=== PATIENT | male | born 1960 | race Caucasian/White ===

== ENCOUNTER 2017-06-12 23:55 | Outpatient (CLI) | payer MEDICAID | END 2017-06-12 23:56 | disposition critical access hospital (66) | LOC: EMS 23:55 | PROVIDERS: ATTEND Surgery | DX: R50.9 Fever, unspecified (principal); R05 Cough; R42 Dizziness and giddiness | CPT/HCPCS: A0425; A0429 ==

== ENCOUNTER 2017-06-13 00:11 | Emergency (ER) | payer MEDICAID ==
--- NOTE | 2017-06-13 00:26 | ED Physician Documentation ---
PD HPI FEVER - Stated complaint Stated Complaint: FEVER - History obtained from History obtained from: Patient - History of Present Illness Timing - onset: How many weeks ago (1) Timing details: Gradual onset Pain level max: 0 Pain level now: 0 Associated symptoms: Chills, Sweats, Nasal congestion, Productive cough. No: Sinus pain, Sore throat, Chest pain, Dyspnea, Abdominal pain Recently seen: Not recently seen - Additional information Additional information: c/o 6 days of subjective fever (did not take temperature, although medics measured temp at 101.5 [employer]), cough, fatigue. he says he was asked to leave [facility]; initially he says this was because he was sick, but he then tells me he was unhappy with staff at the [facility] for not washing drinking glasses (and thus, he figured, was not taking adequate measures to prevent spread of infection). Review of Systems Constitutional: reports: Fever, Chills, Fatigue, Sweats Eyes: denies: Photophobia Ears: denies: Ear pain Throat: denies: Sore throat Cardiac: reports: Reviewed and negative Respiratory: reports: Cough. denies: Dyspnea GI: reports: Nausea (earlier tonight (not nauseas on presentation)), Vomiting ( x1 episode). denies: Abdominal Pain : denies: Dysuria, Frequency Musculoskeletal: denies: Neck pain Neurologic: denies: Confused, Altered mental status, Headache PD PAST MEDICAL HISTORY - Past Medical History Past Medical History: No - Past Surgical History Past Surgical History: No - Present Medications Home Medications: Ambulatory Orders Medication Instructions Recorded Confirmed Azithromycin [Zithromax] 250 mg PO DAILY #4 tablet 06/13/17 - Allergies Allergies/Adverse Reactions: Allergies Allergy/AdvReac Type Severity Reaction Status Date / Time No Known Drug Allergies Allergy Verified 06/13/17 17:05 - Social History Does the pt drink ETOH?: No PD ED PE NORMAL - Vitals Vital signs reviewed: Yes - General General: Alert and oriented X 3, No acute distress, Well developed/nourished - HEENT HEENT: Moist mucous membranes, Pharynx benign - Neck Neck: Supple, no meningeal sign - Cardiac Cardiac: RRR, No murmur, No gallop, No rub - Respiratory Respiratory: No respiratory distress, Other (mild rhochi localized to left mid/ lower lung field posteriorly) - Abdomen Abdomen: Normal bowel sounds, Soft, Non tender, Non distended - Extremities Extremities: No edema Results - Vitals Vitals: Vital Signs - 24 hr 06/13/17 06/13/17 06/13/17 00:12 01:52 04:11 Temperature 38.6 C H 37.5 C Heart Rate 89 80 90 Respiratory 20 18 18 Rate Blood Pressure 155/75 H 114/68 O2 Saturation 95 93 92 06/13/17 06/13/17 06/13/17 04:13 05:18 06:14 Temperature Heart Rate 88 80 Respiratory 16 Rate Blood Pressure 117/65 122/69 122/62 O2 Saturation 96 95 06/13/17 06/13/17 10:17 16:22 Temperature 36.7 C 37.1 C Heart Rate 78 74 Respiratory 17 15 Rate Blood Pressure 126/71 128/72 O2 Saturation 96 100 Oxygen O2 Source Room air - Labs Labs: Laboratory Tests 06/13/17 06/13/17 06/13/17 11:49 11:49 11:49 WBC 12.4 H RBC 3.75 L Hgb 11.7 L Hct 33.5 L MCV 89.1 MCH 31.3 H MCHC 35.1 RDW 12.7 Plt Count 156 MPV 7.6 Neut # 10.2 H Lymph # 1.1 L [place] # 0.9 Eos # 0.0 Baso # 0.1 Absolute Nucleated RBC 0.00 Nucleated RBC % 0.0 Sodium 134 L Potassium 3.6 Chloride 100 L Carbon Dioxide 25 Anion Gap 9.0 BUN 16 Creatinine 1.1 Estimated GFR (MDRD) 69 L Glucose 136 H Calcium 8.1 L Total Bilirubin 0.7 AST 27 ALT 21 Alkaline Phosphatase 43 Total Protein 6.6 L Albumin 3.0 L Globulin 3.6 Albumin/Globulin Ratio 0.8 L Lipase 15 L TSH 0.72 Urine Color Urine Clarity Urine pH Ur Specific [place] Urine Protein Urine Glucose (UA) Urine Ketones Urine Occult Blood Urine Nitrite Urine Bilirubin Urine Urobilinogen Ur Leukocyte Esterase Urine RBC Urine WBC Ur Squamous Epith Cells Urine Bacteria Urine Casts Ur Microscopic Review Urine Culture Comments Urine Opiates Screen Ur Oxycodone Screen Urine Methadone Screen Ur Propoxyphene Screen Ur Barbiturates Screen Ur Tricyclics Screen Ur Phencyclidine Scrn Ur Amphetamine Screen U Methamphetamines Scrn U Benzodiazepines Scrn Urine Cocaine Screen U Cannabinoids Screen Ethyl Alcohol < 5.0 03/11/18 13:45 WBC RBC Hgb Hct MCV MCH MCHC RDW Plt Count MPV Neut # Lymph # [place] # Eos # Baso # Absolute Nucleated RBC Nucleated RBC % Sodium Potassium Chloride Carbon Dioxide Anion Gap BUN Creatinine Estimated GFR (MDRD) Glucose Calcium Total Bilirubin AST ALT Alkaline Phosphatase Total Protein Albumin Globulin Albumin/Globulin Ratio Lipase TSH Urine Color YELLOW Urine Clarity CLEAR Urine pH 5.5 Ur Specific [place] 1.025 Urine Protein 30 H Urine Glucose (UA) NEGATIVE Urine Ketones NEGATIVE Urine Occult Blood TRACE-INTA Urine Nitrite NEGATIVE Urine Bilirubin NEGATIVE Urine Urobilinogen 0.2 (NORMAL) Ur Leukocyte Esterase NEGATIVE Urine RBC 0-5 Urine WBC 0-3 Ur Squamous Epith Cells FEW Squamous Urine Bacteria Moderate H Urine Casts 0-2 Granular Casts Ur Microscopic Review INDICATED Urine Culture Comments INDICATED Urine Opiates Screen NEGATIVE Ur Oxycodone Screen NEGATIVE Urine Methadone Screen NEGATIVE Ur Propoxyphene Screen NEGATIVE Ur Barbiturates Screen NEGATIVE Ur Tricyclics Screen NEGATIVE Ur Phencyclidine Scrn NEGATIVE Ur Amphetamine Screen NEGATIVE U Methamphetamines Scrn NEGATIVE U Benzodiazepines Scrn NEGATIVE Urine Cocaine Screen NEGATIVE U Cannabinoids Screen NEGATIVE Ethyl Alcohol - Rads (name of study) chest xray Radiology: Prelim report reviewed, See rad report PD MEDICAL DECISION MAKING - ED course Complexity details: reviewed results, re-evaluated patient, considered differential, d/w patient ED course: febrile but fever responded well to tylenol in ED. pneumonia on cxr, but vital signs are stable including pulse ox. he is in no distress, including no respiratory distress. given rocephin and zithromax and held in ED for SW consult in AM to assess options for where to stay. he does not have signs/ symptoms that would indicate hospital admission at this time Departure - Departure Disposition: 01 Home, Self Care Clinical Impression: Pneumonia Condition: Good Instructions: ED Pneumonia Adult Follow-Up: [facility] [Provider Group] [facility] [Provider Group] Prescriptions: Azithromycin [Zithromax] 250 mg PO DAILY #4 tablet Discharge Date/Time: 06/13/17 16:30
[2017-06-13] MEDS ORDERED: ACETAMINOPHEN 325 MG TABLET PO STA (00:57)
--- NOTE | 2017-06-13 01:48 | XRAY Report ---
EXAM: CHEST RADIOGRAPHY EXAM DATE: 06/13/2017 01:18 AM. CLINICAL HISTORY: Cough, dyspnea. COMPARISON: None. TECHNIQUE: 2 views. FINDINGS: Lungs/Pleura: Left perihilar airspace opacity which grossly clear right lung. No pneumothorax or effu cecelia. Mediastinum: Heart and mediastinal contours are unremarkable. Other: None. IMPRESSION: Left perihilar pneumonia. Posttreatment chest suggested to ensure clearance. [place] Referring Provider Line: [phone] SITE ID: [id number]
[2017-06-13] MEDS ORDERED: cefTRIAXone 1 GM in SODIUM CHLORIDE 0.9% MINIBAG 100 ML IV STA (03:20)
[2017-06-13] MEDS ORDERED: AZITHROMYCIN INJ 500 MG in SODIUM CHLORIDE 0.9% 250 ML IV STA (03:20)
--- NOTE | 2017-06-13 10:56 | ED Physician Documentation ---
History of Present Illness - Stated complaint Stated Complaint: FEVER - Chief complaint Chief Complaint: General - Additonal information Additional information: hx from pt and EMR 57 male seen last night by Dr Tracy for fever cough had a CXR that showed pna started on antibiotics VS normal plan was to dc however, pt is homeless and had no resources for getting his antibiotics so remained in ER to see SW after they arrived at 830 and finished morning inpt rounds pt has been seen by SW - see her note 1) regarding his meds a voucher has been completed 2) regarding housing [place] [facility] which is where pt has been staying since he moved from [place] to [facility] last fall - he has now been evicted from that system for stating that they weren't washing the dishes and that was causing people to get sick - pt states he has no family locally that he can call or stay with - so only option is the street 3) also it seems that pt is quite psychotic - he denies a hx of mental health or being diagnosed with schizophrenia but is is definitely psychotic today - seems to have some jehovah's witness and paranoid delusions, to listen to him it seems these may go back many years SW feels pt is gravely disabled by these sx and cannot care for himself but she also states that respite and mental health facilities will not accept a mental health pt if he has a contagious dz such as pneumonia I went to see the pt (he had been seen and flagged for dc so i had not evaluated him earlier) he is awake alert cooperative oriented x 3 but after talking to him for a bit his psychosis becomes apparent - he speaks of tenriism by fire, having his identity being stolen, a [employer] game of tic tac toe that nobody wins, being marked out with a giant red letter C etc VS normal RRR ronchi ranjith no ext edema in summary his pna could be txed outpt if he was able to care for himself but being homeless , psychotic and gravely disabled that is not a safe dc and he cannot be placed for mental health care because he has pna spoke to hospitalist who will confer with care management and SW to try and figure out best and safest plan for the pt ordered baseline labs care management and hospitalist and SW met and called me back to advise that this is not an admission worthy dx and so the plan is that the pt will need to board in the ER until he has recovered from his pna and then can get his mental healthy care so will req telepsych eval so we can at least try and help pt psychosis while he boards in the ED indefinitely PD PAST MEDICAL HISTORY - Past Medical History Past Medical History: No - Past Surgical History Past Surgical History: No - Present Medications Home Medications: Ambulatory Orders Medication Instructions Recorded Confirmed Azithromycin [Zithromax] 250 mg PO DAILY #4 tablet 06/13/17 - Allergies Allergies/Adverse Reactions: Allergies Allergy/AdvReac Type Severity Reaction Status Date / Time No Known Drug Allergies Allergy Verified 06/13/17 17:05 - Social History Does the pt smoke?: No Smoking Status: Never smoker Does the pt drink ETOH?: No Does the pt have substance abuse?: No - Immunizations Immunizations are current?: No Results - Vitals Vitals: Vital Signs - 24 hr 06/13/17 06/13/17 06/13/17 00:12 01:52 04:11 Temperature 38.6 C H 37.5 C Heart Rate 89 80 90 Respiratory 20 18 18 Rate Blood Pressure 155/75 H 114/68 O2 Saturation 95 93 92 06/13/17 06/13/17 06/13/17 04:13 05:18 06:14 Temperature Heart Rate 88 80 Respiratory 16 Rate Blood Pressure 117/65 122/69 122/62 O2 Saturation 96 95 06/13/17 06/13/17 10:17 16:22 Temperature 36.7 C 37.1 C Heart Rate 78 74 Respiratory 17 15 Rate Blood Pressure 126/71 128/72 O2 Saturation 96 100 Oxygen O2 Source Room air - Labs Labs: Laboratory Tests 06/13/17 06/13/17 06/13/17 11:49 11:49 11:49 WBC 12.4 H RBC 3.75 L Hgb 11.7 L Hct 33.5 L MCV 89.1 MCH 31.3 H MCHC 35.1 RDW 12.7 Plt Count 156 MPV 7.6 Neut # 10.2 H Lymph # 1.1 L [place] # 0.9 Eos # 0.0 Baso # 0.1 Absolute Nucleated RBC 0.00 Nucleated RBC % 0.0 Sodium 134 L Potassium 3.6 Chloride 100 L Carbon Dioxide 25 Anion Gap 9.0 BUN 16 Creatinine 1.1 Estimated GFR (MDRD) 69 L Glucose 136 H Calcium 8.1 L Total Bilirubin 0.7 AST 27 ALT 21 Alkaline Phosphatase 43 Total Protein 6.6 L Albumin 3.0 L Globulin 3.6 Albumin/Globulin Ratio 0.8 L Lipase 15 L TSH 0.72 Urine Color Urine Clarity Urine pH Ur Specific [place] Urine Protein Urine Glucose (UA) Urine Ketones Urine Occult Blood Urine Nitrite Urine Bilirubin Urine Urobilinogen Ur Leukocyte Esterase Urine RBC Urine WBC Ur Squamous Epith Cells Urine Bacteria Urine Casts Ur Microscopic Review Urine Culture Comments Urine Opiates Screen Ur Oxycodone Screen Urine Methadone Screen Ur Propoxyphene Screen Ur Barbiturates Screen Ur Tricyclics Screen Ur Phencyclidine Scrn Ur Amphetamine Screen U Methamphetamines Scrn U Benzodiazepines Scrn Urine Cocaine Screen U Cannabinoids Screen Ethyl Alcohol < 5.0 06/13/17 13:45 WBC RBC Hgb Hct MCV MCH MCHC RDW Plt Count MPV Neut # Lymph # [place] # Eos # Baso # Absolute Nucleated RBC Nucleated RBC % Sodium Potassium Chloride Carbon Dioxide Anion Gap BUN Creatinine Estimated GFR (MDRD) Glucose Calcium Total Bilirubin AST ALT Alkaline Phosphatase Total Protein Albumin Globulin Albumin/Globulin Ratio Lipase TSH Urine Color YELLOW Urine Clarity CLEAR Urine pH 5.5 Ur Specific [place] 1.025 Urine Protein 30 H Urine Glucose (UA) NEGATIVE Urine Ketones NEGATIVE Urine Occult Blood TRACE-INTA Urine Nitrite NEGATIVE Urine Bilirubin NEGATIVE Urine Urobilinogen 0.2 (NORMAL) Ur Leukocyte Esterase NEGATIVE Urine RBC 0-5 Urine WBC 0-3 Ur Squamous Epith Cells FEW Squamous Urine Bacteria Moderate H Urine Casts 0-2 Granular Casts Ur Microscopic Review INDICATED Urine Culture Comments INDICATED Urine Opiates Screen NEGATIVE Ur Oxycodone Screen NEGATIVE Urine Methadone Screen NEGATIVE Ur Propoxyphene Screen NEGATIVE Ur Barbiturates Screen NEGATIVE Ur Tricyclics Screen NEGATIVE Ur Phencyclidine Scrn NEGATIVE Ur Amphetamine Screen NEGATIVE U Methamphetamines Scrn NEGATIVE U Benzodiazepines Scrn NEGATIVE Urine Cocaine Screen NEGATIVE U Cannabinoids Screen NEGATIVE Ethyl Alcohol PD MEDICAL DECISION MAKING - ED course ED course: pt homeless and delusional with pna SW felt gravely disabled unable to go to in mental health or respite 2/2 pna / contagious unable to be admitted to [facility] as his pneumonia is not severe enough plan was to board in ED indef until pna improved so could have 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 per telepscyh the delusions are longstanding telepsych notes pt refuses any inpt mental health care and also to take any psych meds pt denied SI HI and is not hallucinating telepsych does not feel his is so disabled that he he is gravely disabled and does not think he needs invol mental health care and does not need /wont take meds so then req SW to be involved again to try and find [place] facility for [place] - she called [facility] and advises me they will not reconsider and pt had to be escorted off site by police and is banned for 30 days, asked SW to get pt a hotel voucher for a night but she advises that she spoke to house sup etc and that is also not possible, there are no other options available for homeless men [place] [facility] so will have to dc pt as there seem to simply be no other options despite extensive efforts pt did get pharmacy vouchers at least though he will need to wait until tomorrow to get to pharmacy when buses are running - he has received rocephin zmax both of which should last 24 hr then approx 5 min, after pt left lab called to advise me that a blood culture was drawn and run / put in incubator even though it was never ordered and lab staff wondered what i felt should be done about that - clearly cannot just ignore that result even if it was not ordered - asked lab if it was staph epi ( contaminant) or other - lab advises they cannot determine or release that info unless the culture is ordered so they can use sample presently in incubator for gram stain and further testing - so i ordered the culture that has already been started and asked for security to go see if pt is still on site and bring him back - as he is homeless there is no way to reach him now so hopefully we can find him thankfully security found pt per registration he has to check in again not continue prior ER visit so see my next note for continuation Departure - Departure Disposition: 01 Home, Self Care Clinical Impression: Pneumonia Qualifiers: Pneumonia type: due to unspecified organism Laterality: left Lung location: unspecified part of lung Qualified Code(s): J18.9 - Pneumonia, unspecified organism Condition: Good Instructions: ED Pneumonia Adult Follow-Up: [facility] [Provider Group] [facility] [Provider Group] Prescriptions: Azithromycin [Zithromax] 250 mg PO DAILY #4 tablet Discharge Date/Time: 06/13/17 16:30
[2017-06-13 11:58] LABS: BASOPHILS # (AUTO) 0.1 10^3/uL (0.0-0.1); BASOPHILS % (AUTO) 0.6 %; HGB - HEMOGLOBIN 11.7 g/dL (14.0-18.0); LYMPHOCYTES # (AUTO) 1.1 10^3/uL (1.5-3.5); LYMPHOCYTES % (AUTO) 9.2 %; MEAN CORPUSCULAR HEMOGLOBIN 31.3 pg (27.0-31.0); MEAN CORPUSCULAR HGB CONC 35.1 g/dL (32.0-36.0); MEAN CORPUSCULAR VOLUME 89.1 fL (80.0-94.0); MEAN PLATELET VOLUME 7.6 fL (7.4-11.4); MONOCYTES # (AUTO) 0.9 10^3/uL (0.0-1.0); MONOCYTES % (AUTO) 7.2 %; NEUTROPHILS # (AUTO) 10.2 10^3/uL (1.5-6.6); PLT - PLATELET COUNT 156 10^3/uL (130-450); RED BLOOD COUNT 3.75 10^6/uL (4.70-6.10); RED CELL DISTRIBUTION WIDTH 12.7 % (12.0-15.0); WHITE BLOOD COUNT 12.4 x10^3/uL (4.8-10.8)
--- NOTE | 2017-06-13 12:10 | TELEPSYCH PHYS NOTE ---
Telepsych Note - CHIEF COMPLAINT/HX OF PRESENT ILLNESS Lashayif Complaint and History of Present Illness: Reason for consult: psychosis: delusions HPI: This is a 57 yo male who denies any past psychiatric history. He initially presented to the ED overnight and he was worked up and started on antibiotics for pneumonia with a plan to manage outpatient. Patient is homeless and has limited supports in the area. While social work was exploring disposition options, patient's delusions became more prominent. He is convinced that he has had his identity stolen and there is some government conspiracy playing "tic tac toe" with his life. There is a question by some hospital staff whether patient is gravely disabled enough to warrant inpatient psychiatry but his current infection will be a barrier to immediate placement. On interview, patient confirms that he is under a lot of stress because the halfway he had been staying at for months has kicked him out. He accused them of making people sick by not keeping clean dishes. Patient has both paranoid and temple delusions ("we are in a spiritual war") but denies any hallucinations. He denies SI, HI, and any past harm to self or others. He admits that his beliefs ( delusions) have led to "false arrests" but they did not appear appear to be violent offenses. Mostly writing letters to the [employer] or [employer] were the things that got him in trouble in the past. Patient declines any mental health help and says they have tried to convince him to get help back in 2000. It's unclear whether patient ended up going inpatient at that time. He is pressured, especially when he starts talking about his delusional thought content, but he can be redirected back on topic. Mental Status Exam: Attitude and behavior: fixates on conspiracies about identity theft and "spiritual war" but cooperates with questions Speech: pressured, normal volume, at time irritable tone Affect and mood: "I just need a place to go... I'm not crazy." Association and thought processes: mostly goal directed but does go off on a few tangents during interview Thought content/Perception: +paranoid & temple delusions, no hallucinations, no SI or HI Sensorium and orientation: alert and oriented to situation Cognitive functioning: grossly unimpaired Insight and judgment: fair to poor - SI/HI/SELF HARM SI/HI/SELF HARM (CURRENT OR HISTORY OF):: Other SI/HI/Self Harm Text (Current or History of):: denies current or past thoughts of harm to self or others - VIOLENCE/LEGAL/COLLATERAL Violence - Legal - Collateral: denies - PSYCHIATRIC HX/TREATMENT HX Psychiatric: None, Other Psychiatric/Treatment Hx Other: patient may have had an inpatient or at least crisis stabilization encounter in 2000 but says he had never needed nor complied with any mental health interventions - DRUG/ALCOHOL HX Substance use/abuse/alcohol text: admits to past cannabis but denies any current use of any drugs or alcohol - MEDICAL HX Does the pt have a hx of MRSA?: No Respiratory: Pneumonia (started on antibiotics overnight) Is Patient ?: No - HOME MEDICATIONS Home Meds (as last confirmed): none - ALLERGIES Allergies (as last confirmed): Allergies Allergy/AdvReac Type Severity Reaction Status Date / Time No Known Drug Allergies Allergy Verified 06/13/17 00:15 - FAMILY PSYCH/SUICIDE/SOCIAL HX-MENTAL Family - Suicide - Social Hx and Mental Status Exam: Family History: unknown Social: homeless and now prohibited from returning to [facility] due to pt's accusations toward the facility's cleanliness; recently moved from Home, limited supports in area, only strength seems to be patient's ability to seek out help when he feels he needs it like overnight for respiratory symptoms - PATIENT PROBLEM LIST (1) Delusion Impression: This is a 57 yo male with what appears to be chronic delusions. He originally presented for medical reasons and is reportedly stable enough to receive outpatient treatment for his pneumonia. Patient denies any SI or HI or hallucinations. He admits to past legal difficulties (trespassing and the like) due to his delusions but does not appear to have any past violence or self harm. He declines any mental health help and does not meet dangerousness criteria that would have us compel him to receive this help. - TREATMENT/PHARMACOLOGICAL RECOMMENDATION Treatment - Pharmacological - Therapy Recommendations: 1. patient declines any psychotropic medication 2. patient would benefit from a higher level of psychiatric care but he declines and does not meet dangerousness criteria to be detained and compelled to receive treatment - TIME SPENT & PROVIDER LOCATION Telepsych consultation conducted via videoconferencing: Yes List names and roles of persons who participated in consult: Yenifer Chappell Telepsych Provider Location: [place] Time Telepsych consult began: 12:12 Time Telepsych consult completed: 13:18
[2017-06-13 12:12] LABS: ALBUMIN/GLOBULIN RATIO 0.8 (1.0-2.2); ALKALINE PHOSPHATASE 43 IU/L (42-121); ALT ALANINE AMINOTRANSFERASE 21 IU/L (10-60); AST ASPARTATE AMINOTRANSFERASE 27 IU/L (10-42); BILIRUBIN,TOTAL 0.7 mg/dL (0.2-1.0); BUN - BLOOD UREA NITROGEN 16 mg/dL (6-20); CALCIUM 8.1 mg/dL (8.5-10.3); CARBON DIOXIDE - CO2 25 mmol/L (21-32); CHLORIDE 100 mmol/L (101-111); CREATININE 1.1 mg/dL (0.6-1.2); GFR - MDRD 69 (>89); GLUCOSE 136 mg/dL (70-100); LIPASE 15 U/L (22-51); SODIUM 134 mmol/L (135-145); TOTAL PROTEIN 6.6 g/dL (6.7-8.2)
[2017-06-13 13:58] LABS: MUDS CUTOFF CONCENTRATIONS CUTOFF CONC BELOW:
[2017-06-13 14:01] LABS: BILIRUBIN,URINE NEGATIVE (NEGATIVE); GLUCOSE, URINE (UA) NEGATIVE (NEGATIVE); KETONES,URINE (UA) NEGATIVE (NEGATIVE); LEUKOCYTE ESTERASE, URINE NEGATIVE (NEGATIVE); NITRITE,URINE NEGATIVE (NEGATIVE); OCCULT BLOOD,URINE TRACE-INTA (NEGATIVE); PH,URINE 5.5 PH (5.0-7.5); PROTEIN,URINE 30 mg/dL (NEGATIVE); UROBILINOGEN,URINE 0.2 (NORMAL) E.U./dL (NORMAL)
[2017-06-13 14:12] LABS: BACTERIA,URINE Moderate /HPF (None Seen); CLARITY,URINE CLEAR (CLEAR); RBC,URINE 0-5 /HPF (0-5); SQUAMOUS EPITHELIAL CELL,UR FEW Squamous (<= Few)
[2017-06-13 14:13] LABS: AMPHETAMINE SCREEN,URINE NEGATIVE (NEGATIVE); BENZODIAZEPINES SCREEN, URINE NEGATIVE (NEGATIVE); COCAINE SCREEN URINE NEGATIVE (NEGATIVE); METHADONE SCREEN, URINE NEGATIVE (NEGATIVE); METHAMPHETAMINES SCREEN, URINE NEGATIVE (NEGATIVE); OPIATE SCREEN, URINE NEGATIVE (NEGATIVE); OXYCODONE SCREEN, URINE NEGATIVE (NEGATIVE); PROPOXYPHENE SCREEN, URINE NEGATIVE (NEGATIVE); TRICYCLIC ANTIDEPRESSANT,URINE NEGATIVE (NEGATIVE)
[2017-06-13 16:22] VITALS: BP 128/72
== END 2017-06-13 16:30 | disposition home or self-care (01) ==
LOC: ED 00:11
DX: J18.9 Pneumonia, unspecified organism (principal); N39.0 Urinary tract infection, site not specified; F22 Delusional disorders; Z59.0 Homelessness
CPT/HCPCS: 36415; 71046; 80053; 80306; 80320; 81001; 81003; 83690; 84443; 85025; 87040; 87086; 99284

== ENCOUNTER 2017-06-13 16:52 | Inpatient (IN) | payer MEDICAID ==
--- NOTE | 2017-06-13 17:16 | ED Physician Documentation ---
History of Present Illness - Stated complaint Stated Complaint: PNEUMONIA - Chief complaint Chief Complaint: General - Additonal information Additional information: pt seen last night for fever chills fatigue myalgias cough CXR shows left sided pna pt was given antibiotics by mini shifter pt had been banned from [facility] and was also noted to be delusional in the ER was turned over my mini shifter to me pending SW assisting with housing resources etc SW saw pt and felt he was gravely disabled unable to go to inpt mental health or respite 2/2 pna and being contagious unable to be admitted to [facility] as his pneumonia is not severe enough plan was to board in ED indef until pna improved so could have [facility] place for inpt mental health requested telepsych for 2 reasons 1) to confirm that pt is actually gravely disabled and 2) for med rec while pt is boarding see telepsych consult noted in summary, telespsych feels pt has pure delusional disorder or else paranoid personality disorder per telepscyh the delusions are longstanding telepsych notes pt refuses any inpt mental health care and also refuses to take any psych meds pt denied SI HI and is not hallucinating telepsych does not feel he is so disabled that he he is gravely disabled and does not think he needs invol mental health care and does not need /wont take meds so then req SW to be involved again to try and find nursing home for pt - she called [facility] and advises me they will not reconsider and pt had to be escorted off site by police and is banned for 30 days, so asked SW to get pt a hotel voucher for a night but she advises that she spoke to house sup etc and that is also not possible, and that there are no other options available for homeless men [email or web address] so will have to dc pt to return to his homeless state as there seem to simply be no other options despite extensive efforts did provide pharmacy vouchers then approx 5 min, after pt left lab called to advise me that a blood culture was drawn and run even though had never been ordered - asked lab if it was staph epi (contaminant) or other - lab advises they cannot determine or release that info yet - so i ordered the culture so that lab will process for gram satin ID sensitivity etc - and asked for security to go see if pt is still on site and bring him back - as he is homeless there is no way to reach [facility] security found pt sitting on a bench in the sun outside the hospital per registration he has to check in again not continue prior ER visit pt states he feels about the same as when he left 10-15 min ago, maybe a little better than last night Review of Systems Constitutional: reports: Fever, Fatigue Eyes: reports: Loss of vision Respiratory: reports: Cough GI: denies: Vomiting, Diarrhea Neurologic: reports: Generalized weakness Immunocompromised: denies: Immunocompromised PD PAST MEDICAL HISTORY - Past Medical History Respiratory: Pneumonia (started on antibiotics overnight) Psych: None, Other - Past Surgical History Past Surgical History: No - Present Medications Home Medications: Ambulatory Orders Medication Instructions Recorded Confirmed Azithromycin [Zithromax] 250 mg PO DAILY #4 tablet 06/13/17 - Allergies Allergies/Adverse Reactions: Allergies Allergy/AdvReac Type Severity Reaction Status Date / Time No Known Drug Allergies Allergy Verified 06/13/17 17:05 - Social History Does the pt smoke?: No Smoking Status: Never smoker Does the pt drink ETOH?: No Does the pt have substance abuse?: No - Immunizations Immunizations are current?: No PD ED PE NORMAL - Vitals Vital signs reviewed: Yes - General General: Alert and oriented X 3 - Neck Neck: Supple, no meningeal sign - Cardiac Cardiac: RRR - Respiratory Respiratory: No respiratory distress, Clear bilaterally - Derm Derm: Normal color - Extremities Extremities: No deformity Results - Vitals Vitals: Vital Signs - 24 hr 06/13/17 17:02 Temperature 97.3 C H Heart Rate 71 Respiratory 14 Rate Blood Pressure 136/74 H O2 Saturation 93 Oxygen O2 Source Room air - Labs Labs: Laboratory Tests 06/13/17 06/13/17 06/13/17 17:35 17:35 17:35 WBC 11.9 H RBC 3.75 L Hgb 11.3 L Hct 33.6 L MCV 89.6 MCH 30.2 MCHC 33.7 RDW 12.6 Plt Count 184 MPV 7.8 Neut # 9.4 H Lymph # 1.6 [place] # 0.8 Eos # 0.0 Baso # 0.1 Absolute Nucleated RBC 0.00 Nucleated RBC % 0.0 Sodium 134 L Potassium 3.2 L Chloride 99 L Carbon Dioxide 26 Anion Gap 9.0 BUN 17 Creatinine 1.1 Estimated GFR (MDRD) 69 L Glucose 104 H Lactic Acid 0.9 Calcium 8.0 L PD MEDICAL DECISION MAKING - ED course ED course: known pna now + blood cx lab states it will be several hr minimum for a prelim ID, just know gram + right now but that could be strep penumo - will admit called hospitalist service and pt was promptly admitted Departure - Departure Disposition: [facility] DC/Xfer Clinical Impression: Positive blood culture Pneumonia Qualifiers: Pneumonia type: due to unspecified organism Laterality: left Lung location: unspecified part of lung Qualified Code(s): J18.9 - Pneumonia, unspecified organism Condition: Good Discharge Date/Time: 06/13/17 18:29
[2017-06-13] MEDS ORDERED: SODIUM CHLORIDE 0.9% 1,000 ML IV ONE (17:17)
[2017-06-13 17:45] LABS: BASOPHILS # (AUTO) 0.1 10^3/uL (0.0-0.1); BASOPHILS % (AUTO) 0.4 %; EOSINOPHILS % (AUTO) 0.1 %; HGB - HEMOGLOBIN 11.3 g/dL (14.0-18.0); LYMPHOCYTES # (AUTO) 1.6 10^3/uL (1.5-3.5); LYMPHOCYTES % (AUTO) 13.3 %; MEAN CORPUSCULAR HEMOGLOBIN 30.2 pg (27.0-31.0); MEAN CORPUSCULAR HGB CONC 33.7 g/dL (32.0-36.0); MEAN CORPUSCULAR VOLUME 89.6 fL (80.0-94.0); MEAN PLATELET VOLUME 7.8 fL (7.4-11.4); MONOCYTES # (AUTO) 0.8 10^3/uL (0.0-1.0); MONOCYTES % (AUTO) 6.9 %; NEUTROPHILS # (AUTO) 9.4 10^3/uL (1.5-6.6); NEUTROPHILS % (AUTO) 79.3 %; PLT - PLATELET COUNT 184 10^3/uL (130-450); RED BLOOD COUNT 3.75 10^6/uL (4.70-6.10); RED CELL DISTRIBUTION WIDTH 12.6 % (12.0-15.0); WHITE BLOOD COUNT 11.9 x10^3/uL (4.8-10.8)
[2017-06-13] MEDS ORDERED: SODIUM CHLORIDE FLUSH 0.9% 10 ML SYRINGE IVP PRN (17:53)
[2017-06-13] MEDS ORDERED: ONDANSETRON 4 MG/2 ML VIAL IVP PRN (17:53)
[2017-06-13 17:58] LABS: CREATININE 1.1 mg/dL (0.6-1.2)
[2017-06-13] MEDS ORDERED: AZITHROMYCIN INJ 500 MG in SODIUM CHLORIDE 0.9% 250 ML IV SCH (18:00)
--- NOTE | 2017-06-13 18:07 | HISTORY & PHYSICAL EXAMINATION ---
Chief Complaint - Chief Complaint Chief Complaint: fever, chill, cough History of Present Illness - Admitted From Admitted From:: ER - History Obtained From History obtained from: Pt - History of Present Illness HPI Comment/Other: Mr. Bravo is a 57-year-old male with a past medical history significant for psychiatric history, pneumonia, who present ER complaint of fever, chill, cough , and headache. Pt report his symptoms, fever, chill, headache, cough started one week ago. pt is homeless, and he state he is under a lot of stress because of the residential issue.He had been staying for months in the residential but recently he has been kicked out. Until last night, he though he just can not hold more, then he came to this ER. Pt was discharged with prescribed antibiotics. Pt state his headache is resolved now. No more fever, chill, and cough is subsided since last night. Pt was recalled because his blood culture showed positive negative bacilli. Pt was also evaluated by telepsych because in ER pt's delusions became more prominent. CXR in ER reveals pt had left perihilar pneumonia. In lab test on ER, pt has a slight elevated WBC, potassium 3.2, UDS reveals negative. Pt denies chest pain, shortness of breath, headache, abdominal pain, nausea, vomiting, diarrhea, vision changing. History - Past Medical History Respiratory: reports: Pneumonia (started on antibiotics overnight) Psych: reports: None, Other MRSA Hx?: No - Family & Social History Family History Comment/Other: pt is homeless, but pt state he is under a lot of stress because the residential he had been staying for months has kicked him out. Social History Notes: pt denies smoking cigarette, alcohol and drug abuse - Substance History Use: Uses substance without health or social issues: NONE Abuse: Recurrent use of substance despite neg consequences: NONE - POLST POLST Status: DNR Meds/Allgy - Home Medications Home Medications: Ambulatory Orders Medication Instructions Recorded Confirmed Azithromycin [Zithromax] 250 mg PO DAILY #4 tablet 06/13/17 - Allergies Allergies/Adverse Reactions: Allergies Allergy/AdvReac Type Severity Reaction Status Date / Time No Known Drug Allergies Allergy Verified 06/13/17 17:05 Review of Systems - Constitutional Constitutional: reports: Fatigue, Fever, Chills, Weakness. denies: Malaise, Poor appetite, Diaphoresis, Night sweats - Eyes Eyes: denies: Pain, Irritation, Amaurosis, Blurred vision, Spots in vision, Field loss, Vision loss, Dipolpia - Ears, Nose & Throat Ears, Nose & Throat: denies: Ear pain, Tinnitus, Vertigo, Nasal pain, Nasal discharge, Nosebleeds, Postnasal drainage, Dentures, Sore throat, Bleeding gums - Cardiovascular Cariovascular: denies: Irregular heart rate, Palpitations, Chest pain, Edema, Lightheadedness, Syncope, Exertional dyspnea, Decr. exercise tolerance - Respiratory Respiratory: reports: Cough. denies: Sputum production, Wheezing, Snoring, Hemoptysis, Orthopnea, SOB at rest, SOB with exertion, Apnea, Stridor - Gastrointestinal Gastrointestinal: denies: Abdominal pain, Abdominal distention, Constipation, Diarrhea, Change in bowel habits, Rectal bleeding, Black stools, Bloody stools, Nausea, Vomiting, Manny blood emesis, Coffee grounds emesis, Reflux/heartburn - Genitourinary Genitourinary: denies: Dysuria, Frequency, Urgency, Hematuria, Incontinence, Flank pain, Nocturia - Musculoskeletal Musculoskeletal: denies: Muscle pain, Back pain, Muscle aches, Stiffness, Limited range of motion, Muscle weakness, Gout, Joint pain, Joint swelling - Integumentary Integumentary: denies: Rash, Pruritis, Lesions, Dryness, Lumps, Acne, Pigment changes - Neurological Neurological: denies: General weakness, Focal weakness, Headache, Dizziness, Numbness, Memory problems, Pre-existing deficit, Abnormal gait, Seizures, Incoordination, Slurred speech - Psychiatric Psychiatric: reports: Delusions. denies: Depression, Anxiety, Suicidal, Hallucinations, Homicidal - Endocrine Endocrine: denies: Polyuria, Polydypsia, Polyphagia, Intolerance to cold - Hematologic/Lymphatic Hematologic/Lymphatic: denies: Anemia, Bruising, Petechiae, Blood clots, Lymphadenopathy, Bleeding tendencies Exam - Vital Signs Reviewed Vital Signs: Yes Vital Signs: Vital Signs x48h Temp Pulse Resp BP Pulse Ox 06/13/17 17:02 97.3 C H 71 14 136/74 H 93 - Physical Exam General Appearance: positive: No acute distress, Alert. negative: Lethargic Eyes Bilateral: positive: Normal inspection, PERRL, No lid inflammation, Conjunctivae nml ENT: positive: ENT inspection nml, Pharynx nml, No signs of dehydration. negative: Purulent nasal drainage, Pharyngeal erythema, Oral lesions Neck: positive: Nml inspection, Thyroid nml, No JVD, Trachea midline. negative : Thyromegaly, Lymphadenopathy (R), Lymphadenopathy (L), Stiff neck, Carotid bruit, Swelling/bruising, Tracheal deviation Respiratory: positive: Chest non-tender, No respiratory distress, Breath sounds nml. negative: Wheezes, Rales, Rhonchi Cardiovascular: positive: Regular rate & rhythm, No murmur, No gallop. negative : Irregularly irregular, Extrasystoles, Tachycardia, Bradycardia, JVD present, Systolic murmur, Diastolic murmur Peripheral Pulses: positive: 2+ Abdomen: positive: Non-tender, No organomegaly, Nml bowel sounds, No distention. negative: Tenderness, Guarding, Rebound Back: positive: Nml inspection. negative: CVA tenderness (R), CVA tenderness (L ) Skin: positive: Color nml, No rash, Warm, Dry. negative: Cyanosis, Diaphoresis , Pallor Extremities: positive: Non-tender, Full ROM, Nml appearance. negative: Calf tenderness, Joint swelling, Berta's sign/cords Neurologic/Psychiatric: positive: Oriented x3, Sensation nml, Mood/affect nml. negative: Sensory loss, Facial droop, Slurred/abnml speech, Depressed mood/ affect Conclusion/Plan - Problem List (1) Positive blood culture Conclusion/Plan: positive negative bacilli, fever, chill, cough antibiotics Zosyn, follow up sensitive study repeat blood culture IVF vital monitor (2) Pneumonia Conclusion/Plan: CXR reveals left pneumonia, with fever, chill, cough antibiotics Azithyomycin, and Zosyn repeat blood culture IVF vital monitor Qualifiers: Pneumonia type: due to unspecified organism Laterality: left Lung location: unspecified part of lung Qualified Code(s): J18.9 - Pneumonia, unspecified organism (3) Delusion Conclusion/Plan: pt present delusion in ER but not present when I assessed pt. It seems stable now pt did not have medication for mental issue. telepsych already consult with pt, follow up (4) Homeless Conclusion/Plan: pt is homeless. consult with social work, d/c plan (5) DVT prophylaxis Conclusion/Plan: SCD and lovenox (6) Do not intubate, cardiopulmonary resuscitation (CPR)-only code status Conclusion/Plan: pt clearly request DNR - Lab Results Fish Bones: 06/13/17 17:35 06/13/17 17:35 Core Measures - Anticipated LOS I expect patient to be DC'd or transferred within 96 hours.: Yes - DVT/VTE - Prophylaxis VTE/DVT Device ordered at admit?: Yes VTE/DVT Prophylaxis med ordered at admit?: Yes
[2017-06-13] MEDS ORDERED: POTASSIUM CHLORIDE 20 MEQ TABLET PO SCH (18:20)
[2017-06-13] MEDS: PIPERACILLIN/TAZOBACTAM 3.375 GM in SODIUM CHLORIDE 0.9% MINIBAG 100 ML IV SCH (19:13)
[2017-06-13] MEDS: SODIUM CHLORIDE 0.9% 1,000 ML IV SCH (19:20)
[2017-06-14] MEDS: PIPERACILLIN/TAZOBACTAM 3.375 GM in SODIUM CHLORIDE 0.9% MINIBAG 100 ML IV SCH ×4 (00:18→19:10)
[2017-06-14] MEDS ORDERED: BENZOCAINE/MENTHOL LOZENGE MM PRN (00:24)
[2017-06-14] MEDS: SODIUM CHLORIDE 0.9% 1,000 ML IV SCH ×2 (05:02→15:47)
[2017-06-14] MEDS: SODIUM CHLORIDE FLUSH 0.9% 10 ML SYRINGE IVP SCH ×3 (05:05→15:49)
[2017-06-14 07:58] LABS: BASOPHILS # (AUTO) 0.1 10^3/uL (0.0-0.1); BASOPHILS % (AUTO) 0.9 %; EOSINOPHILS # (AUTO) 0.1 10^3/uL (0.0-0.7); EOSINOPHILS % (AUTO) 0.8 %; HGB - HEMOGLOBIN 11.1 g/dL (14.0-18.0); LYMPHOCYTES # (AUTO) 1.5 10^3/uL (1.5-3.5); MEAN CORPUSCULAR HEMOGLOBIN 31.8 pg (27.0-31.0); MEAN CORPUSCULAR VOLUME 90.9 fL (80.0-94.0); MEAN PLATELET VOLUME 7.7 fL (7.4-11.4); MONOCYTES # (AUTO) 0.8 10^3/uL (0.0-1.0); MONOCYTES % (AUTO) 8.7 %; NEUTROPHILS # (AUTO) 6.3 10^3/uL (1.5-6.6); NEUTROPHILS % (AUTO) 72.6 %; PLT - PLATELET COUNT 168 10^3/uL (130-450); WHITE BLOOD COUNT 8.7 x10^3/uL (4.8-10.8)
[2017-06-14] MEDS ORDERED: VANCOMYCIN PER PHARMACY 1.5 GM in SODIUM CHLORIDE 0.9% 250 ML IV SCH (08:00)
[2017-06-14 08:07] LABS: ALBUMIN 2.7 g/dL (3.2-5.5); ALBUMIN/GLOBULIN RATIO 0.8 (1.0-2.2); BILIRUBIN,TOTAL 0.4 mg/dL (0.2-1.0); CREATININE 1.1 mg/dL (0.6-1.2); MAGNESIUM 2.2 mg/dL (1.7-2.8); TOTAL PROTEIN 6.1 g/dL (6.7-8.2)
[2017-06-14] MEDS: POLYETHYLENE GLYCOL 3350 17 GM PACKET PO SCH (08:51)
[2017-06-14] MEDS: ENOXAPARIN 40 MG/0.4 ML SYRINGE SUBQ SCH (08:51)
[2017-06-14] MEDS: FAMOTIDINE 20 MG TABLET PO SCH (08:51)
[2017-06-14] MEDS ORDERED: AZITHROMYCIN 250 MG TABLET PO SCH (11:00)
--- NOTE | 2017-06-14 12:44 | PROVIDER PROGRESS NOTE ---
Subjective - Prog Note Date Prog Note Date: 06/14/17 - Subjective Pt reports feeling: Improved Subjective: pt state he feel better. No fever, chill, cough, chest pain, shortness of breath. Current Medications - Current Medications Current Medications: Active Medications Acetaminophen (Tylenol) 650 mg PO Q4HR PRN PRN Reason: Pain 1 to 4 Azithromycin (Zithromax) 500 mg PO DAILY [facility] Azithromycin (Zithromax) 250 mg PO ONCE ONE Stop: 06/14/17 13:01 Enoxaparin Sodium (Lovenox) 40 mg SUBQ DAILY [facility] Last Admin: 06/14/17 08:51 Dose: Not Given Famotidine (Pepcid) 20 mg PO DAILY [facility] Last Admin: 06/14/17 08:51 Dose: Not Given Sodium Chloride (Normal Saline 0.9%) 1,000 mls @ 100 mls/hr IV .Q10H [facility] Last Infusion: 06/14/17 06:57 Dose: 100 mls/hr Piperacillin Sod/Tazobactam (Sod 3.375 gm/ Sodium Chloride) 100 mls @ 200 mls/ hr IV Q6H [facility] Last Admin: 06/14/17 12:13 Dose: 200 mls/hr Ondansetron HCl (Zofran Inj) 4 mg IVP Q6HR PRN PRN Reason: Nausea / Vomiting Polyethylene Glycol (Miralax) 17 gm PO DAILY [facility] Last Admin: 06/14/17 08:51 Dose: Not Given Sodium Chloride (Normal Saline Flush 0.9%) 10 ml IVP PRN PRN PRN Reason: NEEDED PER PROVIDER ORDERS Sodium Chloride (Normal Saline Flush 0.9%) 10 ml IVP 0100,0900,1700 [facility] Last Admin: 06/14/17 05:05 Dose: Not Given Throat Lozenges (Cepacol) 1 lozenge MM Q2HR PRN PRN Reason: Throat pain No Known Home Medications [No Known Home Medications] 06/14/17 Objective - Vital Signs/Intake & Output Reviewed Vital Signs: Yes Vital Signs: Vital Signs x48h Temp Pulse Resp BP Pulse Ox 06/14/17 08:00 36.6 C 62 16 120/68 93 Intake & Output: Intake & Output 03/09/18 03/10/18 03/11/18 03/12/18 22:59 22:59 23:59 23:59 Intake Total 701.667 Balance 701.667 - Objective General Appearance: positive: No acute distress, Alert. negative: Lethargic Eyes Bilateral: positive: Normal inspection, PERRL, No lid inflammation, Conjunctivae nml ENT: positive: ENT inspection nml, Pharynx nml, No signs of dehydration. negative: Purulent nasal drainage, Pharyngeal erythema, Oral lesions Neck: positive: Nml inspection, Thyroid nml, No JVD, Trachea midline. negative : Thyromegaly, Lymphadenopathy (R), Lymphadenopathy (L), Stiff neck, Carotid bruit, Swelling/bruising, Tracheal deviation Respiratory: positive: Chest non-tender, No respiratory distress, Breath sounds nml. negative: Wheezes, Rales, Rhonchi Cardiovascular: positive: Regular rate & rhythm, No murmur, No gallop. negative : Irregularly irregular, Extrasystoles, Tachycardia, Bradycardia, Systolic murmur, Diastolic murmur Peripheral Pulses: 2+ Radial (R), 2+ Radial (L), 2+ Dorsalis pedis (R), 2+ Dorsalis pedis (L) Abdomen: positive: Non-tender, No organomegaly, Nml bowel sounds, No distention. negative: Tenderness, Guarding, Rebound Back: positive: Nml inspection. negative: CVA tenderness (R), CVA tenderness (L ) Skin: positive: Color nml, No rash, Warm, Dry. negative: Cyanosis, Diaphoresis , Pallor Extremities: positive: Non-tender, Full ROM, Nml appearance. negative: Calf tenderness, Joint swelling, Berta's sign/cords Neurologic/Psychiatric: positive: Motor nml, Sensation nml, Mood/affect nml. negative: Weakness, Sensory loss, Facial droop, Slurred/abnml speech - Lab Results Fish Bones: 06/14/17 07:50 06/14/17 07:50 Other Labs: Lab Results x24hrs 06/14/17 06/14/17 Range/Units 07:50 07:50 WBC 8.7 (4.8-10.8) x10^3/uL RBC 3.50 L (4.70-6.10) 10^6/uL Hgb 11.1 L (14.0-18.0) g/dL Hct 31.8 L (42.0-52.0) % MCV 90.9 (80.0-94.0) fL MCH 31.8 H (27.0-31.0) pg MCHC 35.0 (32.0-36.0) g/dL RDW 13.0 (12.0-15.0) % Plt Count 168 (130-450) 10^3/uL MPV 7.7 (7.4-11.4) fL Neut # 6.3 (1.5-6.6) 10^3/uL Lymph # 1.5 (1.5-3.5) 10^3/uL [place] # 0.8 (0.0-1.0) 10^3/uL Eos # 0.1 (0.0-0.7) 10^3/uL Baso # 0.1 (0.0-0.1) 10^3/uL Absolute Nucleated RBC 0.00 x10^3/uL Nucleated RBC % 0.0 /100WBC Sodium 137 (135-145) mmol/L Potassium 3.8 (3.5-5.0) mmol/L Chloride 105 (101-111) mmol/L Carbon Dioxide 24 (21-32) mmol/L Anion Gap 8.0 (6-13) BUN 14 (6-20) mg/dL Creatinine 1.1 (0.6-1.2) mg/dL Estimated GFR (MDRD) 69 L (>89) Glucose 106 H (70-100) mg/dL Calcium 8.0 L (8.5-10.3) mg/dL Magnesium 2.2 (1.7-2.8) mg/dL Total Bilirubin 0.4 (0.2-1.0) mg/dL AST 23 (10-42) IU/L ALT 20 (10-60) IU/L Alkaline Phosphatase 36 L (42-121) IU/L Total Protein 6.1 L (6.7-8.2) g/dL Albumin 2.7 L (3.2-5.5) g/dL Globulin 3.4 (2.1-4.2) g/dL Albumin/Globulin Ratio 0.8 L (1.0-2.2) Assessment/Plan - Problem List (1) Positive blood culture Impression: - Problem List (1) Positive blood culture Conclusion/Plan: the second blood culture reveals positive strep pneumoniae continue Zosyn IVF positive negative bacilli, fever, chill, cough antibiotics Zosyn, follow up sensitive study repeat blood culture IVF vital monitor (2) Pneumonia Conclusion/Plan: continue Azith and Zosyn CXR reveals left pneumonia, with fever, chill, cough antibiotics Azithyomycin, and Zosyn repeat blood culture IVF vital monitor (3) Delusion Conclusion/Plan: pt is stable, closely monitor pt present delusion in ER but not present when I assessed pt. It seems stable now pt did not have medication for mental issue. telepsych already consult with pt, follow up (4) Homeless Conclusion/Plan: pt is homeless. consult with social work, d/c plan (2) Pneumonia Qualifiers: Pneumonia type: due to unspecified organism Laterality: left Lung location: unspecified part of lung Qualified Code(s): J18.9 - Pneumonia, unspecified organism
[2017-06-14] MEDS ORDERED: AZITHROMYCIN 250 MG TABLET PO ONE (13:00)
[2017-06-15] MEDS: SODIUM CHLORIDE FLUSH 0.9% 10 ML SYRINGE IVP SCH ×3 (00:35→17:54)
[2017-06-15] MEDS: PIPERACILLIN/TAZOBACTAM 3.375 GM in SODIUM CHLORIDE 0.9% MINIBAG 100 ML IV SCH ×3 (01:13→13:33)
[2017-06-15] MEDS: SODIUM CHLORIDE 0.9% 1,000 ML IV SCH ×2 (02:16→13:33)
[2017-06-15 06:01] LABS: BASOPHILS % (AUTO) 0.6 %; EOSINOPHILS # (AUTO) 0.2 10^3/uL (0.0-0.7); HGB - HEMOGLOBIN 11.2 g/dL (14.0-18.0); LYMPHOCYTES # (AUTO) 1.7 10^3/uL (1.5-3.5); LYMPHOCYTES % (AUTO) 20.7 %; MEAN CORPUSCULAR HEMOGLOBIN 30.3 pg (27.0-31.0); MEAN CORPUSCULAR HGB CONC 33.2 g/dL (32.0-36.0); MEAN CORPUSCULAR VOLUME 91.3 fL (80.0-94.0); MEAN PLATELET VOLUME 7.5 fL (7.4-11.4); MONOCYTES # (AUTO) 0.6 10^3/uL (0.0-1.0); MONOCYTES % (AUTO) 7.8 %; NEUTROPHILS # (AUTO) 5.7 10^3/uL (1.5-6.6); NEUTROPHILS % (AUTO) 68.9 %; PLT - PLATELET COUNT 232 10^3/uL (130-450); RED CELL DISTRIBUTION WIDTH 12.9 % (12.0-15.0); WHITE BLOOD COUNT 8.2 x10^3/uL (4.8-10.8)
[2017-06-15 06:18] LABS: ALBUMIN 2.8 g/dL (3.2-5.5); ALBUMIN/GLOBULIN RATIO 0.8 (1.0-2.2); BILIRUBIN,TOTAL 0.5 mg/dL (0.2-1.0); CALCIUM 8.3 mg/dL (8.5-10.3); CREATININE 1.1 mg/dL (0.6-1.2); TOTAL PROTEIN 6.3 g/dL (6.7-8.2)
[2017-06-15] MEDS: ACETAMINOPHEN 325 MG TABLET PO PRN ×2 (08:35→21:50)
[2017-06-15] MEDS: FAMOTIDINE 20 MG TABLET PO SCH (08:35)
[2017-06-15] MEDS: ENOXAPARIN 40 MG/0.4 ML SYRINGE SUBQ SCH (08:38)
[2017-06-15] MEDS: POLYETHYLENE GLYCOL 3350 17 GM PACKET PO SCH (08:38)
[2017-06-15] MEDS ORDERED: AZITHROMYCIN 250 MG TABLET PO SCH (09:00)
--- NOTE | 2017-06-15 15:40 | PROVIDER PROGRESS NOTE ---
Subjective - Prog Note Date Prog Note Date: 06/15/17 Prog Note Time: 12:00 - Subjective Pt reports feeling: Improved Subjective: Jeremias claims he is improved since the time of admission. He denies SOB, chest pain, N/V or a new cough. He states that he has a "gurgling sound at times when he lies on his side in bed. Current Medications - Current Medications Current Medications: Active Medications Acetaminophen (Tylenol) 650 mg PO Q4HR PRN PRN Reason: Pain 1 to 4 Last Admin: 06/15/17 08:35 Dose: 650 mg Azithromycin (Zithromax) 500 mg PO DAILY [facility] Last Admin: 06/15/17 08:34 Dose: 500 mg Enoxaparin Sodium (Lovenox) 40 mg SUBQ DAILY [facility] Last Admin: 06/15/17 08:38 Dose: Not Given Famotidine (Pepcid) 20 mg PO DAILY [facility] Last Admin: 06/15/17 08:35 Dose: 20 mg Sodium Chloride (Normal Saline 0.9%) 1,000 mls @ 100 mls/hr IV .Q10H [facility] Last Infusion: 06/15/17 14:05 Dose: 100 mls/hr Piperacillin Sod/Tazobactam (Sod 3.375 gm/ Sodium Chloride) 100 mls @ 200 mls/ hr IV Q6H [facility] Last Infusion: 06/15/17 14:04 Dose: Infused Ondansetron HCl (Zofran Inj) 4 mg IVP Q6HR PRN PRN Reason: Nausea / Vomiting Polyethylene Glycol (Miralax) 17 gm PO DAILY [facility] Last Admin: 06/15/17 08:38 Dose: Not Given Sodium Chloride (Normal Saline Flush 0.9%) 10 ml IVP PRN PRN PRN Reason: NEEDED PER PROVIDER ORDERS Sodium Chloride (Normal Saline Flush 0.9%) 10 ml IVP 0100,0900,1700 [facility] Last Admin: 06/15/17 08:35 Dose: 10 ml Throat Lozenges (Cepacol) 1 lozenge MM Q2HR PRN PRN Reason: Throat pain No Known Home Medications [No Known Home Medications] 06/14/17 Objective - Vital Signs/Intake & Output Reviewed Vital Signs: Yes Vital Signs: Vital Signs x48h Temp Pulse Resp BP Pulse Ox 06/15/17 07:58 36.7 C 57 L 20 138/75 H 95 Intake & Output: Intake & Output 06/12/17 06/13/17 06/14/17 06/15/17 22:59 23:59 23:59 23:59 Intake Total 2530.000 2545 Balance 2530.000 2545 - Objective General Appearance: positive: No acute distress, Alert, Lethargic Eyes Bilateral: positive: Normal inspection, PERRL ENT: positive: ENT inspection nml, Pharynx nml, No signs of dehydration Neck: positive: Nml inspection, Thyroid nml, No JVD Respiratory: positive: Chest non-tender, No respiratory distress, Rhonchi Cardiovascular: positive: Regular rate & rhythm Peripheral Pulses: 1+ Radial (R), 1+ Radial (L) Abdomen: positive: Non-tender, No organomegaly, Nml bowel sounds, No distention Back: positive: Nml inspection Skin: positive: No rash, Warm, Dry Extremities: positive: Non-tender, Full ROM, Nml appearance, No pedal edema Neurologic/Psychiatric: positive: Oriented x3, CN's nml (2-12), Motor nml, Sensation nml, Depressed mood/affect Reflexes: Bicep (R): 3+, Bicep (L): 3+ - Lab Results Fish Bones: 06/16/17 04:57 06/16/17 04:57 Other Labs: Lab Results x24hrs 06/15/17 06/15/17 Range/Units 05:55 05:55 WBC 8.2 (4.8-10.8) x10^3/uL RBC 3.70 L (4.70-6.10) 10^6/uL Hgb 11.2 L (14.0-18.0) g/dL Hct 33.7 L (42.0-52.0) % MCV 91.3 (80.0-94.0) fL MCH 30.3 (27.0-31.0) pg MCHC 33.2 (32.0-36.0) g/dL RDW 12.9 (12.0-15.0) % Plt Count 232 (130-450) 10^3/uL MPV 7.5 (7.4-11.4) fL Neut # 5.7 (1.5-6.6) 10^3/uL Lymph # 1.7 (1.5-3.5) 10^3/uL [place] # 0.6 (0.0-1.0) 10^3/uL Eos # 0.2 (0.0-0.7) 10^3/uL Baso # 0.0 (0.0-0.1) 10^3/uL Absolute Nucleated RBC 0.01 x10^3/uL Nucleated RBC % 0.1 /100WBC Sodium 138 (135-145) mmol/L Potassium 4.1 (3.5-5.0) mmol/L Chloride 108 (101-111) mmol/L Carbon Dioxide 23 (21-32) mmol/L Anion Gap 7.0 (6-13) BUN 10 (6-20) mg/dL Creatinine 1.1 (0.6-1.2) mg/dL Estimated GFR (MDRD) 69 L (>89) Glucose 96 (70-100) mg/dL Calcium 8.3 L (8.5-10.3) mg/dL Total Bilirubin 0.5 (0.2-1.0) mg/dL AST 21 (10-42) IU/L ALT 21 (10-60) IU/L Alkaline Phosphatase 40 L (42-121) IU/L Total Protein 6.3 L (6.7-8.2) g/dL Albumin 2.8 L (3.2-5.5) g/dL Globulin 3.5 (2.1-4.2) g/dL Albumin/Globulin Ratio 0.8 L (1.0-2.2) - Diagnostic Imaging Diagnostic Imaging Results: positive: Final report reviewed Assessment/Plan - Problem List (1) Bacteremia Impression: Patient came to the ED a few days before admission when blood cultures were drawn and grew strep pneumoniae. Patient was tracked down by authorities, to be admitted for further IV treatment of this infection. Patient was placed on IV Zosyn, IVFs and a new set of blood cultures were obtained. Patient complained of fevers, chills, cough that was "rust colored". Plan: Patient's vital signs will be monitored, labs will be monitored and we will await final sensitivities. (2) Pneumonia Impression: A chest x-ray was completed at the time of admission and shows left sided pneumonia. Patient was started on PO Azithromycin and IV Zosyn. 2 sets of blood cultures were obtained and show the best treatment that would cover both pneumonia and bacteremia may be Levofloxacin that will be changed today in an oral form. Plan: D/C IVs, add nebs, and adding an expectorant for breaking up sputum. Qualifiers: Pneumonia type: due to unspecified organism Laterality: left Lung location: unspecified part of lung Qualified Code(s): J18.9 - Pneumonia, unspecified organism (3) Delusional disorders Impression: Patient presented to the ED with delusion behavior, likely due to acute infection and life situations. Patient tends to go on tangents in conversations and has difficulty with staying on the same subject. Patient does not have a regular therapist that he sees, and is not on antipsychotics. Plan: Monitor mental status, and offer antidepressants if needed. (4) Homeless Impression: Patient admits to having no address and being homeless for an extended period of time. Plan: Consult with social work to assist with discharge plans.
[2017-06-15] MEDS ORDERED: IPRATROPIUM/ALBUTEROL 3 ML NEB INH PRN (17:12)
[2017-06-15] MEDS: levoFLOXacin 250 MG TABLET PO SCH (17:54)
[2017-06-15] MEDS ORDERED: VANCOMYCIN PER PHARMACY 100 GM in SODIUM CHLORIDE 0.9% 250 ML IV SCH (18:00)
[2017-06-15] MEDS: guaiFENesin 600 MG TABLET PO SCH (21:53)
[2017-06-16 05:29] LABS: BASOPHILS # (AUTO) 0.1 10^3/uL (0.0-0.1); BASOPHILS % (AUTO) 0.9 %; EOSINOPHILS # (AUTO) 0.2 10^3/uL (0.0-0.7); EOSINOPHILS % (AUTO) 2.9 %; HGB - HEMOGLOBIN 12.3 g/dL (14.0-18.0); LYMPHOCYTES # (AUTO) 1.6 10^3/uL (1.5-3.5); LYMPHOCYTES % (AUTO) 24.6 %; MEAN CORPUSCULAR HEMOGLOBIN 30.3 pg (27.0-31.0); MEAN CORPUSCULAR HGB CONC 33.3 g/dL (32.0-36.0); MEAN CORPUSCULAR VOLUME 91.2 fL (80.0-94.0); MEAN PLATELET VOLUME 7.5 fL (7.4-11.4); MONOCYTES # (AUTO) 0.5 10^3/uL (0.0-1.0); MONOCYTES % (AUTO) 7.1 %; NEUTROPHILS # (AUTO) 4.2 10^3/uL (1.5-6.6); NEUTROPHILS % (AUTO) 64.5 %; PLT - PLATELET COUNT 306 10^3/uL (130-450); RED BLOOD COUNT 4.06 10^6/uL (4.70-6.10); RED CELL DISTRIBUTION WIDTH 12.9 % (12.0-15.0); WHITE BLOOD COUNT 6.5 x10^3/uL (4.8-10.8)
[2017-06-16 05:45] LABS: ALBUMIN 2.9 g/dL (3.2-5.5); ALBUMIN/GLOBULIN RATIO 0.8 (1.0-2.2); BILIRUBIN,TOTAL 0.6 mg/dL (0.2-1.0); CALCIUM 8.6 mg/dL (8.5-10.3); TOTAL PROTEIN 6.7 g/dL (6.7-8.2)
[2017-06-16] MEDS: SODIUM CHLORIDE FLUSH 0.9% 10 ML SYRINGE IVP SCH ×3 (06:38→18:17)
[2017-06-16] MEDS: ENOXAPARIN 40 MG/0.4 ML SYRINGE SUBQ SCH (09:22)
[2017-06-16] MEDS: FAMOTIDINE 20 MG TABLET PO SCH (09:22)
[2017-06-16] MEDS: guaiFENesin 600 MG TABLET PO SCH ×2 (09:22→21:03)
[2017-06-16] MEDS: POLYETHYLENE GLYCOL 3350 17 GM PACKET PO SCH (09:22)
--- NOTE | 2017-06-16 12:08 | PROVIDER PROGRESS NOTE ---
Subjective - Prog Note Date Prog Note Date: 06/16/17 Prog Note Time: 12:04 - Subjective Pt reports feeling: No change Subjective: Jeremias does not feel ready to be discharged since he is still coughing up sputum and has not regained his full appetite. He denies chest pain, SOB, N/V or an increased cough. Current Medications - Current Medications Current Medications: Active Medications Acetaminophen (Tylenol) 650 mg PO Q4HR PRN PRN Reason: Pain 1 to 4 Last Admin: 06/15/17 21:50 Dose: 650 mg Albuterol/Ipratropium (Duoneb) 3 ml INH Q4HR PRN PRN Reason: Wheezing Enoxaparin Sodium (Lovenox) 40 mg SUBQ DAILY [facility] Last Admin: 06/16/17 09:22 Dose: Not Given Famotidine (Pepcid) 20 mg PO DAILY [facility] Last Admin: 06/16/17 09:22 Dose: 20 mg Guaifenesin (Mucinex) 600 mg PO BID [facility] Last Admin: 06/16/17 09:22 Dose: 600 mg Levofloxacin (Levaquin) 500 mg PO Q24H [facility] Last Admin: 06/15/17 17:54 Dose: 500 mg Ondansetron HCl (Zofran Inj) 4 mg IVP Q6HR PRN PRN Reason: Nausea / Vomiting Polyethylene Glycol (Miralax) 17 gm PO DAILY [facility] Last Admin: 06/16/17 09:22 Dose: Not Given Sodium Chloride (Normal Saline Flush 0.9%) 10 ml IVP PRN PRN PRN Reason: NEEDED PER PROVIDER ORDERS Sodium Chloride (Normal Saline Flush 0.9%) 10 ml IVP 0100,0900,1700 [facility] Last Admin: 06/16/17 09:22 Dose: 10 ml Throat Lozenges (Cepacol) 1 lozenge MM Q2HR PRN PRN Reason: Throat pain No Known Home Medications [No Known Home Medications] 06/14/17 Objective - Vital Signs/Intake & Output Reviewed Vital Signs: Yes Vital Signs: Vital Signs x48h Temp Pulse Resp BP Pulse Ox 06/16/17 08:10 36.6 C 63 20 146/71 H 94 Intake & Output: Intake & Output 06/13/17 06/14/17 06/15/17 06/16/17 23:59 23:59 23:59 23:59 Intake Total 2530.000 2745 460 Balance 2530.000 2745 460 - Objective General Appearance: positive: Alert, Moderate distress Eyes Bilateral: positive: Normal inspection, PERRL ENT: positive: ENT inspection nml, Pharynx nml, No signs of dehydration Neck: positive: Nml inspection, Thyroid nml, No JVD Respiratory: positive: Chest non-tender, No respiratory distress, Wheezes, Rhonchi Cardiovascular: positive: Regular rate & rhythm, No gallop, Decreased pulse(s) Peripheral Pulses: 1+ Radial (R), 1+ Radial (L) Abdomen: positive: Non-tender, No organomegaly, Nml bowel sounds, No distention Back: positive: Nml inspection Skin: positive: No rash, Warm, Dry Extremities: positive: Non-tender, Full ROM, Nml appearance, No pedal edema Neurologic/Psychiatric: positive: Oriented x3, CN's nml (2-12), Motor nml, Sensation nml, Depressed mood/affect Reflexes: Bicep (R): 3+, Bicep (L): 3+ - Lab Results Fish Bones: 06/17/17 05:34 06/17/17 05:34 Other Labs: Lab Results x24hrs 06/16/17 06/16/17 Range/Units 04:57 04:57 WBC 6.5 (4.8-10.8) x10^3/uL RBC 4.06 L (4.70-6.10) 10^6/uL Hgb 12.3 L (14.0-18.0) g/dL Hct 37.0 L (42.0-52.0) % MCV 91.2 (80.0-94.0) fL MCH 30.3 (27.0-31.0) pg MCHC 33.3 (32.0-36.0) g/dL RDW 12.9 (12.0-15.0) % Plt Count 306 (130-450) 10^3/uL MPV 7.5 (7.4-11.4) fL Neut # 4.2 (1.5-6.6) 10^3/uL Lymph # 1.6 (1.5-3.5) 10^3/uL [place] # 0.5 (0.0-1.0) 10^3/uL Eos # 0.2 (0.0-0.7) 10^3/uL Baso # 0.1 (0.0-0.1) 10^3/uL Absolute Nucleated RBC 0.01 x10^3/uL Nucleated RBC % 0.1 /100WBC Sodium 138 (135-145) mmol/L Potassium 4.2 (3.5-5.0) mmol/L Chloride 107 (101-111) mmol/L Carbon Dioxide 23 (21-32) mmol/L Anion Gap 8.0 (6-13) BUN 12 (6-20) mg/dL Creatinine 1.0 (0.6-1.2) mg/dL Estimated GFR (MDRD) 77 L (>89) Glucose 92 (70-100) mg/dL Calcium 8.6 (8.5-10.3) mg/dL Total Bilirubin 0.6 (0.2-1.0) mg/dL AST 21 (10-42) IU/L ALT 25 (10-60) IU/L Alkaline Phosphatase 43 (42-121) IU/L Total Protein 6.7 (6.7-8.2) g/dL Albumin 2.9 L (3.2-5.5) g/dL Globulin 3.8 (2.1-4.2) g/dL Albumin/Globulin Ratio 0.8 L (1.0-2.2) - Diagnostic Imaging Diagnostic Imaging Results: positive: Final report reviewed Assessment/Plan - Problem List (1) Bacteremia Impression: Patient came to the ED a few days before admission when blood cultures were drawn and grew strep pneumoniae. Patient was tracked down by authorities, to be admitted for further IV treatment of this infection. Patient was placed on IV Zosyn that was changed to levofloxicin according to sensitivities, IVFs and a new set of blood cultures were obtained. Patient complained of fevers, chills , cough that was "rust colored". Plan: Continue to monitor vital signs and labs. (2) Pneumonia Impression: A chest x-ray was completed at the time of admission and shows left sided pneumonia. Patient was started on PO Azithromycin and IV Zosyn. 2 sets of blood cultures were obtained and show the best treatment that would cover both pneumonia and bacteremia may be Levofloxacin that was changed yesterday in an oral form. Plan: Continue nebs, and added an expectorant for breaking up sputum. Qualifiers: Pneumonia type: due to unspecified organism Laterality: left Lung location: unspecified part of lung Qualified Code(s): J18.9 - Pneumonia, unspecified organism (3) Delusional disorders Impression: Patient presented to the ED with delusion behavior, likely due to acute infection and life situations. Patient tends to go on tangents in conversations and has difficulty with staying on the same subject. Patient does not have a regular therapist that he sees, and is not on antipsychotics. Patient denies "getting kicked out of area homeless shelters" when asked. Rather, he just prefers to stay away due to staffing. Plan: Monitor mental status, and offer antidepressants if needed. (4) Homeless Impression: Patient admits to having no address and being homeless for an extended period of time. Social [place] Plan: Continue to consult with social work to assist with discharge plans. (5) Headache in back of head Impression: Patient states that he has had a headache ever since arriving in the ED. He describes this as both sharp and dull that does not exacerbate with tucking his chin to his chest. He denies dizziness, vision changes or other associated symptoms. He has been coughing, so this could be caused by the muscles involved with coughing. MRI of head to rule out tumor, or other defects, which was grossly normal. Plan: Continue to monitor for headache an treat with medications.
[2017-06-16] MEDS: levoFLOXacin 250 MG TABLET PO SCH (18:18)
[2017-06-16] MEDS: ACETAMINOPHEN 325 MG TABLET PO PRN (18:22)
--- NOTE | 2017-06-16 20:22 | MRI Preliminary Report ---
Exam: MRI BRAIN W/O IMPRESSION: 1. Negative noncontrast MRI of the brain. No acute abnormality. 2. Minimal scattered white matter T2/FLAIR bright signal seen in the cerebral hemispheres. This is no nspecific but typically secondary to small vessel ischemic change. 3. Mild scattered paranasal sinus mucosal thickening. [facility] SITE ID: [id number]
--- NOTE | 2017-06-16 20:46 | MRI Report ---
EXAM: MRI BRAIN WITHOUT CONTRAST EXAM DATE: 06/16/2017 05:55 PM. CLINICAL HISTORY: Headache. COMPARISON: None. TECHNIQUE: Multiplanar, multisequence T1-weighted and fluid-sensitive MR sequences of the brain were performed. Sequences optimized for routine evaluation. Other: None. IV Contrast: None. FINDINGS: Brain Volume: Normal for age. Parenchyma/Dura: No mass, acute infarct or hemorrhage. Minimal confluent periventricular white matter T2/FLAIR bright signal is seen in the cerebral hemispheres. Punctate similar focus of T2/FLAIR brigh t signal is seen in the kapoor radiata bilaterally above the lentiform nuclei. No cortical signal abn ormality. Ventricles/Cisterns: No hydrocephalus. No abnormal extra-axial fluid collection or hemorrhage. Orbits: Symmetric and unremarkable. Sella Turcica: The pituitary gland, cavernous sinuses, suprasellar cistern and optic chiasm are unrem arkable. IAC: Symmetric and unremarkable. Vasculature: Normal signal flow void is seen in the major arterial structures at the skull base. Sinuses: Mild polypoid mucosal thickening is seen in the maxillary antrum. Scattered mucosal thickeni ng is seen in the remainder of the paranasal sinuses. No layering fluid levels. The mastoid air cells are clear. Bones: No focal pathologic appearing marrow signal changes. Other: None. IMPRESSION: 1.Negative noncontrast MRI of the brain. No acute abnormality. 2. Minimal scattered white matter T2/FLAIR bright signal seen in the cerebral hemispheres. This is no nspecific but typically secondary to small vessel ischemic change. 3. Mild scattered paranasal sinus mucosal thickening. [facility] Referring Provider Line: [phone] SITE ID: [id number]
[2017-06-17] MEDS: SODIUM CHLORIDE FLUSH 0.9% 10 ML SYRINGE IVP SCH ×2 (05:17→09:22)
[2017-06-17 05:58] LABS: BASOPHILS % (AUTO) 0.2 %; EOSINOPHILS # (AUTO) 0.1 10^3/uL (0.0-0.7); EOSINOPHILS % (AUTO) 2.1 %; LYMPHOCYTES # (AUTO) 2.3 10^3/uL (1.5-3.5); LYMPHOCYTES % (AUTO) 32.7 %; MEAN CORPUSCULAR HGB CONC 32.9 g/dL (32.0-36.0); MEAN CORPUSCULAR VOLUME 91.1 fL (80.0-94.0); MEAN PLATELET VOLUME 6.9 fL (7.4-11.4); MONOCYTES # (AUTO) 0.5 10^3/uL (0.0-1.0); MONOCYTES % (AUTO) 7.5 %; NEUTROPHILS % (AUTO) 57.5 %; PLT - PLATELET COUNT 425 10^3/uL (130-450); RED BLOOD COUNT 4.66 10^6/uL (4.70-6.10); RED CELL DISTRIBUTION WIDTH 12.8 % (12.0-15.0); WHITE BLOOD COUNT 6.9 x10^3/uL (4.8-10.8)
[2017-06-17 06:01] LABS: ALBUMIN 3.2 g/dL (3.2-5.5); ALBUMIN/GLOBULIN RATIO 0.7 (1.0-2.2); BILIRUBIN,TOTAL 0.3 mg/dL (0.2-1.0); CREATININE 1.1 mg/dL (0.6-1.2); TOTAL PROTEIN 7.5 g/dL (6.7-8.2)
[2017-06-17] MEDS: POLYETHYLENE GLYCOL 3350 17 GM PACKET PO SCH (08:48)
[2017-06-17] MEDS: ENOXAPARIN 40 MG/0.4 ML SYRINGE SUBQ SCH (08:48)
[2017-06-17] MEDS: FAMOTIDINE 20 MG TABLET PO SCH (09:21)
[2017-06-17] MEDS: guaiFENesin 600 MG TABLET PO SCH (09:21)
--- NOTE | 2017-06-17 10:17 | Discharge Plan ---
Discharge Plan Disposition: Home, Self Care Condition: Good Prescriptions: guaiFENesin [Mucinex] 600 mg PO BID #60 tablet levoFLOXacin [Levaquin] 500 mg PO Q24H 10 Days #10 tablet Saccharomyces Boulardii [Florastor] 250 mg PO BID 20 Days #40 capsule Diet: Regular Activity Restrictions: No Restrictions Shower Restrictions: No Driving Restrictions: No Weight Bearing: Full Weight Additional Instructions or Follow Up instructions: You were treated for a blood infection and pneumonia with IV antibiotics. You should continue to take the antibiotics for 10 more days. You complained of a headache so an MRI was completed and was normal. Please see your PCP within a week. No Smoking: If you smoke, Please STOP! Call for help.
--- NOTE | 2017-06-17 10:21 | DISCHARGE SUMMARY ---
Discharge Summary Admit Date: 06/13/17 Discharge Date: 06/17/17 Discharging Provider: ILIANA Kumar Primary Care Provider: Kira PCP Code Status: Do Not Attempt Resuscitation Condition at Discharge: Good Discharge Disposition: 01 Home, Self Care - DIAGNOSES Admission Diagnoses: Bacteremia due to Gram-negative bacteria (R78.81) Pneumonia (J18.9) Delusion (F22) Homeless (Z59.0) Discharge Diagnoses with Status of Each Condition: Bacteremia due to Gram-negative bacteria (R78.81) improved, care to continue with PO antibiotics based on blood culture results. Pneumonia (J18.9) improved, treatment to continue with PO antibiotics. Delusion (F22) resolved. Homeless (Z59.0) chronic, stable. Patient refuses resources when given. - HPI History of Present Illness: Mr. Bravo is a 57-year-old male with a past medical history significant for psychiatric history, pneumonia, who presented to the ER with complaints of fever , chills, cough, and headache. Patient reports that his symptoms started one week ago. He is known to be homeless, and he states he has been under a lot of stress because of the [facility] issues. He had been staying in the same [facility] for months, but recently he has been kicked out. Last night, he came to the ED because he could just not take it anymore. He was discharged with prescribed antibiotics, but later cultures came back positive, so authorities were called to go into the community and search for him as he needed to be admitted for IV antibiotics based on culture results. Patient states that his headache is resolved, no fevers, chilsl, and cough has subsided since last night. Patient was also evaluated by telepsych because due to delusions becoming more prominent and this has resolved at the time of admission. A CXR in ER revealed a left perihilar pneumonia. Lab tests show a slightly elevated WBC, potassium 3.2, UDS was negative. Patient denies chest pain, shortness of breath, headache , abdominal pain, nausea, vomiting, diarrhea, or vision changes. Patient is admitted to inpatient for further treatment of bacteremia using IV antibiotics. - HOSPITAL COURSE Hospital Course: The following diagnoses were prevalent during this hospital stay: 1) Bacteremia- Patient came to the ED a few days before admission when blood cultures were drawn and grew strep pneumoniae. Patient was tracked down by authorities, to be admitted for further IV treatment of this infection. Patient was placed on IV Zosyn that was changed to levofloxicin according to sensitivities, IVFs and a new set of blood cultures were obtained. Patient complained of fevers, chills, cough that was "rust colored". Patient was continuously monitored and labs were checked daily. (2) Pneumonia- A chest x-ray was completed at the time of admission and shows left sided pneumonia. Patient was started on PO Azithromycin and IV Zosyn. 2 sets of blood cultures were obtained and show the best treatment that would cover both pneumonia and bacteremia may be Levofloxacin that was changed in an oral form. Patient was given scheduled and PRN nebs, and added an expectorant for breaking up sputum. Patient was continued on Levofloxacin PO to be continued. (3) Delusional disorders- Patient presented to the ED with delusion behavior, likely due to acute infection and life situations. Patient tends to go on tangents in conversations and has difficulty with staying on the same subject. Patient does not have a regular therapist that he sees, and is not on antipsychotics. Patient denies "getting kicked out of area homeless shelters" when asked. Rather, he just prefers to stay away due to staffing. Patient's mental status was monitored and no new medications were prescribed at the time of discharge. (4) Homeless- Patient admits to having no address and being homeless for an extended period of time. Social work has been meeting with him almost daily in hopes of him accepting help off the [place]. Social work was consulted to assist with discharge plans, but patient refused to leave the [place], so he did not have a plan in place at the time of discharge and was picked up by a friend. (5) Headache in back of head- Patient states that he has had a headache ever since arriving in the ED. He describes this as both sharp and dull that does not exacerbate with tucking his chin to his chest. He denies dizziness, vision changes or other associated symptoms. He has been coughing, so this could be caused by the muscles involved with coughing. MRI of head to rule out tumor, or other defects, which was grossly normal. Patient was continuously monitored for headaches and treated with medications. Disposition: Patient was discharged in stable condition and did not require oxygen. - ALLERGIES Allergies/Adverse Reactions: Allergies Allergy/AdvReac Type Severity Reaction Status Date / Time No Known Drug Allergies Allergy Verified 06/13/17 17:05 - MEDICATIONS Home Medications: Ambulatory Orders Medication Instructions Recorded Confirmed Acetaminophen [Tylenol] 650 mg PO Q4HR PRN tablet 06/17/17 Saccharomyces Boulardii [Florastor] 250 mg PO BID 20 Days #40 capsule 06/17/17 guaiFENesin [Mucinex] 600 mg PO BID #60 tablet 06/17/17 levoFLOXacin [Levaquin] 500 mg PO Q24H 10 Days #10 tablet 06/17/17 - PHYSICAL EXAM AT DISCHARGE General Appearance: positive: No acute distress, Alert Eyes Bilateral: positive: Normal inspection, PERRL ENT: positive: ENT inspection nml, Pharynx nml, No signs of dehydration Neck: positive: Nml inspection, Thyroid nml, No JVD Respiratory: positive: Chest non-tender, No respiratory distress, Other ( crackles) Cardiovascular: positive: Regular rate & rhythm, No gallop, Decreased pulse(s) Peripheral Pulses: positive: 1+ Abdomen: positive: Non-tender, No organomegaly, Nml bowel sounds, No distention Back: positive: Nml inspection Skin: positive: Color nml, No rash, Warm, Dry Extremities: positive: Non-tender, Full ROM, Nml appearance, No pedal edema Neurologic/Psychiatric: positive: Oriented x3, CN's nml (2-12), Motor nml, Sensation nml, Depressed mood/affect Reflexes: Bicep (R): 3+, Bicep (L): 3+ - LABS Result Diagrams: 06/17/17 05:34 06/17/17 05:34 - DIAGNOSTIC IMAGING Diagnostic Imaging Results: Final report reviewed Diagnostic Imaging Results Comments: EXAM: CHEST RADIOGRAPHY EXAM DATE: 06/13/2017 01:18 AM. CLINICAL HISTORY: Cough, dyspnea. COMPARISON: None. TECHNIQUE: 2 views. FINDINGS: Lungs/Pleura: Left perihilar airspace opacity which grossly clear right lung. No pneumothorax or effusion. Mediastinum: Heart and mediastinal contours are unremarkable. Other: None. IMPRESSION: Left perihilar pneumonia. Posttreatment chest suggested to ensure clearance. EXAM: MRI BRAIN WITHOUT CONTRAST EXAM DATE: 06/16/2017 05:55 PM. CLINICAL HISTORY: Headache. COMPARISON: None. TECHNIQUE: Multiplanar, multisequence T1-weighted and fluid-sensitive MR sequences of the brain were performed. Sequences optimized for routine evaluation. Other: None. IV Contrast: None. FINDINGS: Brain Volume: Normal for age. Parenchyma/Dura: No mass, acute infarct or hemorrhage. Minimal confluent periventricular white matter T2/FLAIR bright signal is seen in the cerebral hemispheres. Punctate similar focus of T2/FLAIR bright signal is seen in the kapoor radiata bilaterally above the lentiform nuclei. No cortical signal abnormality. Ventricles/Cisterns: No hydrocephalus. No abnormal extra-axial fluid collection or hemorrhage. Orbits: Symmetric and unremarkable. Sella Turcica: The pituitary gland, cavernous sinuses, suprasellar cistern and optic chiasm are unremarkable. IAC: Symmetric and unremarkable. Vasculature: Normal signal flow void is seen in the major arterial structures at the skull base. Sinuses: Mild polypoid mucosal thickening is seen in the maxillary antrum. Scattered mucosal thickening is seen in the remainder of the paranasal sinuses. No layering fluid levels. The mastoid air cells are clear. Bones: No focal pathologic appearing marrow signal changes. Other: None. IMPRESSION: 1.Negative noncontrast MRI of the brain. No acute abnormality. 2. Minimal scattered white matter T2/FLAIR bright signal seen in the cerebral hemispheres. This is nonspecific but typically secondary to small vessel ischemic change. 3. Mild scattered paranasal sinus mucosal thickening. ECHOCARDIOGRAM: 06/15/17 Normal LV size and function, EF 55%. the LA is mildly dilated. Mild mitral regurg, the remainder of the valve function and structure are normal. No vegetation is seen, but one cannot be ruled out on this study. [place] pulmonary hypertension with a PASP 36mmHg. If concern for endocarditis persists, consider MARGARITA. - FOLLOW UP Follow Up: Disposition: 01 Home, Self Care Condition: Good Prescriptions: guaiFENesin [Mucinex] 600 mg PO BID #60 tablet levoFLOXacin [Levaquin] 500 mg PO Q24H 10 Days #10 tablet Saccharomyces Boulardii [Florastor] 250 mg PO BID 20 Days #40 capsule Diet: Regular Activity Restrictions: No Restrictions Shower Restrictions: No Driving Restrictions: No Weight Bearing: Full Weight Additional Instructions or Follow Up instructions: You were treated for a blood infection and pneumonia with IV antibiotics. You should continue to take the antibiotics for 10 more days. You complained of a headache so an MRI was completed and was normal. Please see your PCP within a week. - TIME SPENT Time Spent in Discharge (Minutes): 45
[2017-06-17 15:44] VITALS: BP 121/76
== END 2017-06-17 16:10 | disposition home or self-care (01) | DRG 871 ==
LOC: ED 16:52 → MS2 17:53
PROVIDERS: ADMIT Nurse Practitioner Gerontology; ATTEND Nurse Practitioner
DX: R78.81 Bacteremia (principal); J18.9 Pneumonia, unspecified organism; F22 Delusional disorders; R51 Headache; Z66 Do not resuscitate; Z59.0 Homelessness; Z87.01 Personal history of pneumonia (recurrent)
CPT/HCPCS: 36415; 70551; 80048; 80053; 83605; 83735; 85025; 87040; 93306; 96365; 96366; 96367; 99283; 99285